=== PATIENT | female | born 1955 | race African-American/Black ===

== ENCOUNTER 2016-08-19 23:43 | Emergency (ER) | payer SELFPAY ==
[2016-08-20 00:03] VITALS: TEMP 98.6; BMI 22.8
--- NOTE | 2016-08-20 01:23 | DIRPT ---
CLINICAL DATA: Right shoulder pain and low back pain after fall from step stool while changing a light bulb. EXAM: RIGHT SHOULDER - 2+ VIEW COMPARISON: None. FINDINGS: There is no evidence of fracture or dislocation. There is no evidence of arthropathy or other focal bone abnormality. Soft tissues are unremarkable. IMPRESSION: Negative. Electronically Signed By: Musa Tobin M.D. On: 08/20/2016 01:20
--- NOTE | 2016-08-20 01:24 | DIRPT ---
CLINICAL DATA: Low back pain after a fall tonight. EXAM: LUMBAR SPINE - COMPLETE 4+ VIEW COMPARISON: None. 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 Normal alignment of the lumbar spine. No vertebral compression deformities. Intervertebral disc space heights outside of the fused segments are normal. Mild hypertrophic degenerative changes are present. No vertebral compression deformities. No focal bone lesion or bone destruction. Visualized sacrum appears intact. IMPRESSION: No acute bony abnormalities. Coalition of multiple vertebrae as discussed, likely congenital. Electronically Signed By: Musa Tobin M.D. On: 08/20/2016 01:22
--- NOTE | 2016-08-20 01:58 | EDPRACDOC ---
- General Chief Complaint: Back Pain Stated Complaint: FALL: BACK PAIN Time Seen by Provider: 08/20/16 01:48 Information Source: Patient - History of Present Illness Onset: [employer] HPI: STANDING ON TABLE TO CHANGE A LIGHT BULB. WAS GETTING DOWN SHE FELL LANDING ON HER BACK PAIN RIGHT SHOULDER LUMBAR AREA. NO NUMBNESS TINGLING WEAKNESS ABLE TO MOVE SHOULDER WELL. Pain Severity: Reports: Moderate Injuries/Pain Location: Reports: upper extremity (RIGHT SHOULDER), back (LUMBAR) Loss of Consciousness: no loss of consciousness Modifying Factors: improves with: movement Associated Symptoms (Fall): Reports: denies symptoms Home Medications: Ambulatory Orders Cyclobenzaprine HCl [Flexeril] 10 mg PO TID PRN #30 tablet 08/20/16 Hydrocodone Bit/Acetaminophen [Hydrocodon-Acetaminophen 5-325] 1 - 2 tab PO Q6H PRN #7 tab 08/20/16 Lisinopril 5 mg PO DAILY #30 tablet 08/20/16 ED Past Medical History - History Reviewed Yes Nurses notes reviewed and agree except as marked - Patient Medical History Psychological History: Denies: Depression Systemic History: Denies: Cancer Surgical History: Reports: Hysterectomy - Social Medical History Smoking Status: Never smoker EDM Review of Systems - Review of Systems ROS Negative Except as Marked: Yes All systems reviewed and were negative except as marked - Physical Exam Constitutional: No apparent distress, Alert Oriented to: Time, Person, Place Last recorded Vital Signs: Last Vital Signs Temp 98.6 F 08/20/16 00:00 Pulse 76 08/20/16 01:37 Resp 20 08/20/16 01:37 BP 186/97 H 08/20/16 01:37 Pulse Ox 93 08/20/16 01:37 Oxygen Pulse Oxygen Saturation 93 O2 Device Room Air Oxygen Flow Rate Fraction of Inspired Oxygen ( FIO2) - HEENT Head: Normal ( normocephalic) Eye Exam: Normal (PERRL, EOMI, Sclera white) Oropharynx: Normal (Pharynx:Moist without exudate,Gums-no swelling) Nose: No Symptoms Reported (septum midline) Neck: Normal (FROM, trachea at midline). negative: Bony Tenderness, Limited ROM , Meningeal Signs, Paraspinal Tenderness - Respiratory/Cardiovascular Respiratory: Normal - CTA (BBS clear to auscultation without adventitious sounds ) Cardiovascular: Normal (RRR without murmur, gallop or rub) - GI Auscultation: Normal (NABS) Palpation: Normal (Soft,No rebound or guarding, non distended) Tenderness: Non tender Morales's Sign: Negative - Musculoskeletal Back: Lumbar TTP. negative: Abrasion, Ecchymosis, Laceration, Thoracic Step-off , Lumbar Step-off, Thoracic TTP Extremities: Normal (Normal tone, Pulses 2+ No cyanosis or edema, FROM), Other ( MILD ANTERIOR RIGHT SHOULDER PAIN TENDERNESS PALPATION, BUT THERE IS NORMAL ACTIVE AND PASSIVE RANGE OF MOTION. JOINTS OPTION LOCATED SKIN NORMAL STRENGTH OF BICEPS SHOULDER AB 80 DUCTION WITHIN NORMAL LIMITS.) - Integumentary Skin: Normal, Warm, Dry Lymphatics: Normal (no adenopathy) - Neurologic Memory Impaired: Normal Motor Function: Normal (Normal tone, Pulses 2+ No cyanosis or edema, FROM) Cranial Nerve: Normal (CN II-X11 intact sensation, strength 5/5) Cerebellar: Normal Mood Description: Normal Perception: Normal - Diagnostic Imaging L-Spine Image interpreted by: Radiologist Patient Name: HELEN NATARAJAN LOC: ED : 1955 AGE: 61 Order Date:08/20/16 Date of Service: Report # [id number] Ord Physician: Marisela Torres MD Exam # [id number] Emergency Physician: Provider,ER Exam(s): [id number] RAD/DG LUMBAR SPINE COMPLETE 4+V CLINICAL DATA: Low back pain after a fall tonight. EXAM: LUMBAR SPINE - COMPLETE 4+ VIEW COMPARISON: None. 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 Normal alignment of the lumbar spine. No vertebral compression deformities. Intervertebral disc space heights outside of the fused segments are normal. Mild hypertrophic degenerative changes are present. No vertebral compression deformities. No focal bone lesion or bone destruction. Visualized sacrum appears intact. IMPRESSION: No acute bony abnormalities. Coalition of multiple vertebrae as discussed, likely congenital. Electronically Signed By: Musa Tobin M.D. On: 08/20/2016 01:22 Electronically Signed By: Radha Tobin MD Electronically Signed Date/Time: Dictate Date/Time: 08/20/16 0120 Technologist: Lorie Dietrich Transcribed By: Jonathon Transcribed Date/Time: 08/20/16 0122 Shoulder Image interpreted by: Radiologist Patient Name: HELEN NATARAJAN LOC: ED : 1955 AGE: 61 Order Date:08/20/16 Date of Service: Report # [id number] Ord Physician: Marisela Torres MD Exam # [id number] Emergency Physician: Provider,ER Exam(s): [id number] RAD/DG SHOULDER 2+V-R CLINICAL DATA: Right shoulder pain and low back pain after fall from step stool while changing a light bulb. EXAM: RIGHT SHOULDER - 2+ VIEW COMPARISON: None. FINDINGS: There is no evidence of fracture or dislocation. There is no evidence of arthropathy or other focal bone abnormality. Soft tissues are unremarkable. IMPRESSION: Negative. Electronically Signed By: Musa Tobin M.D. On: 08/20/2016 01:20 Electronically Signed By: Radha Tobin MD Electronically Signed Date/Time: Dictate Date/Time: 08/20/16119 Technologist: Lorie Dietrich Transcribed By: Jonathon Transcribed Date/Time: 08/20/16 0120 - Departure Disposition: Home Condition: Good Final Diagnosis: Lumbar radiculopathy, Acute low back pain Accidental fall Qualifiers: Encounter type: initial encounter Qualified Code(s): W19.XXXA - Unspecified fall, initial encounter Hypertension Qualifiers: Hypertension type: essential hypertension Qualified Code(s): I10 - Essential ( primary) hypertension Instructions: Fall Prevention (ED), Narcotic Pain Management (ED), Acute Low Back Pain (ED), Chronic Hypertension (ED), Hypertension (ED) Education/Counseling Given To: Patient, Family Member Education/Counseling Given Regarding: Diagnosis, Treatment, Prognosis Referrals: None,No Provider [Primary Care Provider] - One Week Prescriptions: New Cyclobenzaprine HCl [Flexeril] 10 mg PO TID PRN #30 tablet PRN Reason: Muscle Spasms Hydrocodone Bit/Acetaminophen [Hydrocodon-Acetaminophen 5-325] 1 - 2 tab PO Q6H PRN #7 tab PRN Reason: Pain Lisinopril 5 mg PO DAILY #30 tablet
[2016-08-20] MEDS ORDERED: CYCLOBENZAPRINE 10 MG TAB PO ONE (02:11)
[2016-08-20] MEDS ORDERED: HYDROCODONE 5 MG/ACETAMIN 325 MG TAB PO ONE (02:11)
[2016-08-20 02:22] VITALS: BP 212/101; PULSE 78
== END 2016-08-20 02:22 | disposition home or self-care (01) ==
LOC: ED 23:43
DX: M54.5 Low back pain (principal); M54.16 Radiculopathy, lumbar region; I10 Essential (primary) hypertension; W08.XXXA Fall from other furniture, initial encounter
CPT/HCPCS: 72110; 73030; 99283; J3490